=== PATIENT | female | born 1960 | race African-American/Black ===

== ENCOUNTER → 2016-09-14 | Outpatient (CLI) | payer BC | LOC: OD 15:24 | DX: Z12.72 Encounter for screening for malignant neoplasm of vagina (principal) ==

== ENCOUNTER → 2018-09-07 | Outpatient (CLI) | payer BC ==
--- NOTE | 2018-09-07 17:05 | RADIOLOGY REPORT (SQ) ---
EXAM DESCRIPTION: CHEST PA/LATERAL COMPLETED DATE/TIME: 09/07/2018 4:34 pm REASON FOR STUDY: PLEURISY COMPARISON: None. EXAM PARAMETERS: NUMBER OF VIEWS: two views TECHNIQUE: Digital Frontal and Lateral radiographic views of the chest acquired. RADIATION DOSE: NA LIMITATIONS: none FINDINGS: LUNGS AND PLEURA: No opacities, masses or pneumothorax. No pleural effusion. MEDIASTINUM AND HILAR STRUCTURES: No masses or contour abnormalities. HEART AND VASCULAR STRUCTURES: Heart normal size. No evidence for failure. BONES: No acute findings. HARDWARE: None in the chest. OTHER: No other significant finding. IMPRESSION: NO SIGNIFICANT RADIOGRAPHIC FINDING IN THE CHEST. TECHNICAL DOCUMENTATION: JOB ID: [id number] [employer]- All Rights Reserved Reading location - IP/workstation name: [email or web address]
== END ==
LOC: OD 16:20
PROVIDERS: ATTEND Internal Medicine
DX: R09.1 Pleurisy (principal)
CPT/HCPCS: 71046

== ENCOUNTER → 2019-07-12 | Outpatient (CLI) | payer BC | LOC: WI 08:40 | PROVIDERS: ATTEND Internal Medicine | DX: Z12.31 Encounter for screening mammogram for malignant neoplasm of breast (principal) | CPT/HCPCS: 77063; 77067 ==